=== PATIENT | male | born 1940 | race Two or more races ===

== ENCOUNTER 2017-09-12 03:53 | Emergency (ER) | payer SELFPAY ==
[~2017-09-12] VITALS: Ht 175.3 cm; Wt 81.6 kg
--- NOTE | 2017-09-12 03:59 | NUR ---
PT TO ER BED 6. PT BIB RA C/O BACK PAIN X 5 DAYS WITH PAIN SHOOTING DOWN LEFT LEG. 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 VSS/RESP EVEN UNLABORED/NAD NOTED/SKIN WARM AND DRY/DENIES N-V-D/AOX4. AWAITING MD AMES.
[2017-09-12] MEDS ORDERED: DEXAMETHASONE SOD PHOSPHATE 10 MG/ML VIAL ONE (04:14)
[2017-09-12] MEDS ORDERED: CYCLOBENZAPRINE 10 MG TABLET ONE (04:15)
[2017-09-12] MEDS ORDERED: HYDROMORPHONE 1 MG/1 ML DISP.SYRIN ONE (04:15)
[2017-09-12] MEDS ORDERED: DEXAMETHASONE SOD PHOSPHATE 4 MG/ML VIAL IM ONE (04:30)
[2017-09-12] MEDS ORDERED: CYCLOBENZAPRINE 10 MG TABLET PO ONE (04:30)
[2017-09-12] MEDS ORDERED: HYDROMORPHONE 1 MG/1 ML DISP.SYRIN IM ONE (04:30)
--- NOTE | 2017-09-12 04:57 | NUR ---
Patient discharged with daughter to home in stable condition. Written and verbal after care instructions given, patient instructed do to drive. Patient verbalizes understanding of instruction. Patient ambulatory with a steady gait.
[2017-09-12 04:58] VITALS: BP 117/59
== END 2017-09-12 04:59 | disposition home or self-care (01) ==
LOC: ER 03:56
DX: M54.42 Lumbago with sciatica, left side (principal); I10 Essential (primary) hypertension
CPT/HCPCS: 99281; A4606; J1100; J1170; Z7610; Z7502